=== PATIENT | male | born 1975 ===

== ENCOUNTER 2021-12-04 11:25 | Outpatient (CLI) | payer BC | END 2021-12-04 11:26 | disposition home or self-care (01) | LOC: WOUND 11:25 | PROVIDERS: ATTEND Surgery | DX: I89.0 Lymphedema, not elsewhere classified (principal); I87.331 Chronic venous hypertension (idiopathic) with ulcer and inflammation of right lower extremity; L97.811 Non-pressure chronic ulcer of other part of right lower leg limited to breakdown of skin; K21.9 Gastro-esophageal reflux disease without esophagitis; G62.9 Polyneuropathy, unspecified; Z87.891 Personal history of nicotine dependence | CPT/HCPCS: 99204; G0463 ==